=== PATIENT | female | born 1965 | race Caucasian/White ===

== ENCOUNTER → 2017-08-22 | Outpatient (CLI) | payer BC ==
[~2017-08-22] MED LIST: COZAAR50 M1 PO; CVS GLUCOSAMIN1 EAC5 PO
--- NOTE | ~2017-08-22 | ST ---
[place], [place] EXERCISE STRESS TEST REPORT NAME: SHANON SHEA UNIT #: [id number] ROOM: DOCTOR: MAURA MON MD BIRTHDATE: [birth year] DOS: 08/22/2017 LEXISCAN PORTION OF THE LEXISCAN CARDIOLITE Baseline cardiogram sinus rhythm with nonspecific ST-T changes and T-wave inversions in the anterolateral leads. A 0.4 mg of Lexiscan, duration of 10 seconds. Baseline cardiogram sinus with nonspecific ST-T changes. With Lexiscan, there are more T-wave inversions present in the anterolateral leads. The patient did have shortness of breath. No chest discomfort. Blood pressure and heart rate response was normal. FINAL IMPRESSION: Abnormal EKG response with T-wave inversion in the anterolateral leads with Lexiscan. No chest pain with Lexiscan. No dysrhythmia with Lexiscan. Blood pressure and heart rate response was normal. Nuclear images will be reported separately. MAURA MON MD CM:STRESS:EXERCISE STRESS TEST REPORT [id number] MAURA MON MD
== END | disposition home or self-care (01) ==
LOC: CARD 01:21
DX: R94.31 Abnormal electrocardiogram [ECG] [EKG] (principal)

== ENCOUNTER 2019-04-11 03:49 | Inpatient (IN) | payer BC ==
[~2019-04-11] VITALS: Ht 165.1 cm
[2019-04-11] VITALS (7 sets, daily range): BP systolic 124–167; BP diastolic 62–92
[2019-04-11 04:14] LABS: BASO % 0.4 % (0.0-1.0); EOS # 0.3 10*3/uL (0.0-0.4); EOS % 3.2 % (1.0-4.0); HEMATOCRIT 43.1 % (37.0-47.0); HEMOGLOBIN 13.6 g/dl (12.0-16.0); LYMPH # 2.6 10*3/uL (1.3-4.4); LYMPH % 32.6 % (27.0-41.0); MEAN CELL VOLUME 89.8 fl (81.0-99.0); MEAN CORPUSCULAR HGB 28.3 pg (27.0-31.0); MEAN CORPUSCULAR HGB CONC 31.6 g/dl (33.0-37.0); MEAN PLATELET VOLUME 10.2 fl (9.6-12.3); MONO # 0.5 10*3/uL (0.1-1.0); MONO % 6.2 % (3.0-9.0); NEUT # 4.5 10*3/uL (2.3-7.9); NEUT % 57.2 % (47.0-73.0); PLATELET COUNT AUTOMATED 214 10*3/uL (130-400); RED CELL DISTRI WIDTH 13.8 % (0-14.5); WHITE BLOOD COUNT 7.9 10*3/uL (4.8-10.8)
[2019-04-11 04:22] LABS: INTERNATIONAL NORM RATIO 0.9 (2.0-3.5)
[2019-04-11 04:26] LABS: ALBUMIN 3.7 gm/dl (3.1-4.5); ALKALINE PHOSPHATASE 107 U/L (45-117); BUN 15 mg/dl (7-24); CHLORIDE 108 mmol/L (98-107); POTASSIUM 3.7 mmol/L (3.5-5.1); SGOT/AST 17 IU/L (3-35); SGPT/ALT 23 U/L (12-78); SODIUM 140 mmol/L (136-145); TOTAL PROTEIN 7.4 gm/dL (6.4-8.2)
[2019-04-11 04:27] LABS: TROPONIN I < 0.015 ng/ml (<0.045)
--- NOTE | 2019-04-11 04:27 | NUR ---
PT REPORTS NAUSEA IS DECREASING.
--- NOTE | 2019-04-11 04:55 | NUR ---
PT REPORTS NO PAIN AT THIS TIME.
--- NOTE | 2019-04-11 04:56 | NUR ---
PT REPORTS BREATHING HAS IMPROVED. DOES NOT FEEL SOB NOW
--- NOTE | 2019-04-11 05:46 | NUR ---
A 54, admitted to , under the services of VEDA Corbett DO with a diagnosis of ACS, CHEST PAIN. Chief complaint is ANGINA. Patient arrived via bed from ER. Monitor applied. Initial assessment completed. Vital signs taken and recorded. VEDA CORBETT DO notified of admission to the unit. Orders received. See assessment for past medical history, medications and allergies. Patient and/or family oriented to unit. [address] visitation policy reviewed. Clothing/patient valuable form completed. ISMAEL GIRALDO
--- NOTE | 2019-04-11 06:27 | NUR ---
CALL OUT TO ANSWERING SERVICE FOR DR. MON
--- NOTE | 2019-04-11 07:30 | NUR ---
PATIENT ASSESSMENT COMPLETED AT THIS TIME. PATIENT VOICED NO COMPLAINTS, NO CP/PRESSURE. PATIENT SHOWS NO SIGNS OF DISTRESS NOTED, RESP ARE ERND ON ROOM AIR. BED IS LOCKED IN LOWEST POSITION. CALL LIGHT WITHIN REACH.
--- NOTE | 2019-04-11 08:11 | NUR ---
DR.MAGGE FOSS AND STATED THAT PATIENT IS TO BE TRANSFERRED TO [facility]ED[facility] 04/12, AND TO CALL HIS OFFICE TO SCHEDULE WITH [facility].
--- NOTE | 2019-04-11 08:30 | NUR ---
IN TO SEE PATIENT, STATED THAT THERE ARE ST ABNORMALITIES SEEN IN DIFFERENT LEADS. PATIENT WAS MADE AWARE BY THAT SHE WILL HAVE HEART CATH DONE TOMORROW.
[2019-04-12] VITALS: BP 108/63
--- NOTE | 2019-04-12 04:23 | NUR ---
PT RESTING COMFORTABLY AT THIS TIME. NO C/O CHEST PAIN OR DISCOMFORT. WILL CONTINUE TO MONITOR.
--- NOTE | 2019-04-12 05:17 | NUR ---
PT LEFT FACILITY VIA EMS TO BE TRANSFERED TO [facility] FOR FURTHER TREATMENT. AN ATTEMPT TO CONTACT RECIEVING FACILITY TO GIVE NURSE TO NURSE REPORT WAS MADE.
--- NOTE | 2019-04-12 06:07 | NUR ---
REPORT CALLED TO [facility] AT THIS TIME. SPOKE TO CHAPITO CHOI.
== END 2019-04-12 05:17 | disposition other institution (70) | DRG 880 ==
LOC: ED 03:49 → EDHOLD 05:08 → 4E 05:08
PROVIDERS: Emergency Medicine; ADMIT Internal Medicine
DX: F41.9 Anxiety disorder, unspecified (principal); E44.1 Mild protein-calorie malnutrition; Z68.42 Body mass index [BMI] 45.0-49.9, adult; I24.9 Acute ischemic heart disease, unspecified; J98.11 Atelectasis; K21.9 Gastro-esophageal reflux disease without esophagitis; E87.8 Other disorders of electrolyte and fluid balance, not elsewhere classified; E66.01 Morbid (severe) obesity due to excess calories; I10 Essential (primary) hypertension; Z90.49 Acquired absence of other specified parts of digestive tract; Z90.710 Acquired absence of both cervix and uterus; Z82.49 Family history of ischemic heart disease and other diseases of the circulatory system; Z82.41 Family history of sudden cardiac death; Z79.899 Other long term (current) drug therapy

== ENCOUNTER 2021-01-05 20:30 | Emergency (ER) | payer BC ==
[~2021-01-05] VITALS: Ht 165.1 cm; Wt 118.4 kg
[2021-01-05 21:29] LABS: BASO % 0.3 % (0.0-1.0); EOS # 0.2 10*3/uL (0.0-0.4); EOS % 2.2 % (1.0-4.0); HEMATOCRIT 46.2 % (37.0-47.0); LYMPH # 1.6 10*3/uL (1.3-4.4); LYMPH % 17.4 % (27.0-41.0); MEAN CORPUSCULAR HGB 27.9 pg (27.0-31.0); MEAN CORPUSCULAR HGB CONC 31.4 g/dl (33.0-37.0); MEAN PLATELET VOLUME 9.7 fl (9.6-12.3); MONO # 0.6 10*3/uL (0.1-1.0); MONO % 6.8 % (3.0-9.0); NEUT # 6.8 10*3/uL (2.3-7.9); NEUT % 73.1 % (47.0-73.0); PLATELET COUNT AUTOMATED 254 10*3/uL (130-400); RED BLOOD COUNT 5.19 10*6/uL (4.10-5.10); RED CELL DISTRI WIDTH 14.4 % (0-14.5); WHITE BLOOD COUNT 9.3 10*3/uL (4.8-10.8)
[2021-01-05 21:47] LABS: ALBUMIN 3.9 gm/dl (3.1-4.5); ALKALINE PHOSPHATASE 122 U/L (45-117); BUN 15 mg/dl (7-24); CHLORIDE 111 mmol/L (98-107); CREATININE 0.82 mg/dL (0.55-1.02); LIPASE 52 U/L (73-393); POTASSIUM 3.6 mmol/L (3.5-5.1); SGOT/AST 5 IU/L (3-35); SGPT/ALT 20 U/L (12-78); SODIUM 140 mmol/L (136-145); TOTAL PROTEIN 7.8 gm/dL (6.4-8.2)
[2021-01-05 22:09] LABS: BILIRUBIN 2+ (Negative); BLOOD Negative (Negative); CLARITY Turbid (Clear); COLOR Dark Yellow (Yellow); GLUCOSE Negative (Negative); KETONE 1+ (Negative); LEUKO ESTERASE Trace (Negative); NITRITE Negative (Negative); PH 5.5 (4.5-8.0); SPECIFIC GRAVITY >= 1.030 (1.001-1.030)
[2021-01-05 22:27] LABS: BACTERIA 3+; CALCIUM OXALATE CRYSTALS 1+; EPITHELIAL CELLS 16-20; MUCOUS 2+
[2021-01-06] MEDS ORDERED: METRONIDAZOLE500 M1 PO (00:32)
== END 2021-01-06 01:45 | disposition home or self-care (01) ==
LOC: ED 20:30
PROVIDERS: Emergency Medicine
DX: K52.9 Noninfective gastroenteritis and colitis, unspecified (principal); R11.2 Nausea with vomiting, unspecified; I10 Essential (primary) hypertension; I25.10 Atherosclerotic heart disease of native coronary artery without angina pectoris; E66.01 Morbid (severe) obesity due to excess calories; Z79.899 Other long term (current) drug therapy; Z68.42 Body mass index [BMI] 45.0-49.9, adult; Z90.49 Acquired absence of other specified parts of digestive tract; Z90.711 Acquired absence of uterus with remaining cervical stump